=== PATIENT | male | born 1985 | race Caucasian/White ===

== ENCOUNTER 2020-03-10 17:03 | Emergency (ER) | payer OTHER ==
[~2020-03-10] VITALS: Ht 170.2 cm; Wt 95.5 kg
[2020-03-10] MEDS ORDERED: TRAM50TA4 PO (17:40)
[2020-03-10 19:02] VITALS: BP 145/92
== END 2020-03-10 19:22 | disposition home or self-care (01) ==
LOC: EMS 17:06
DX: R07.89 Other chest pain (principal); R42 Dizziness and giddiness; T40.7X5A Adverse effect of cannabis (derivatives), initial encounter; F17.200 Nicotine dependence, unspecified, uncomplicated; F12.90 Cannabis use, unspecified, uncomplicated; Z03.818 Encounter for observation for suspected exposure to other biological agents ruled out; Y92.89 Other specified places as the place of occurrence of the external cause
CPT/HCPCS: 87635